=== PATIENT | female | born 1975 ===

== ENCOUNTER 2016-09-20 23:07 | Emergency (ER) | payer MEDICAID ==
[2016-09-20 23:07] VITALS: BMI 23.8
[2016-09-20 23:25] VITALS: BP 132/85; PULSE 84; RESP 16; TEMP 98.5; O2SAT 98
--- NOTE | 2016-09-21 00:34 | C.PDOC ---
History Of Present Illness 41 year old patient presents to the ED complaining of atraumatic left hand pain for the past 2 days. Patient reports the pain has a "pinching" sensation from the wrist to the left thumb. The pain is worse on movement. Patient denies any numbness or weakness. Time Seen by Provider: 09/20/16 23:36 Chief Complaint (Nursing): Finger,Hand,&Wrist History Per: Patient History/Exam Limitations: no limitations Onset/Duration Of Symptoms: Days (2) Current Symptoms Are (Timing): Still Present Quality: "Pain", Other ("pinching") Severity: Mild Pain Scale Rating Of: 3 Exacerbating Factor(s): Movement Recent travel outside of the [place]: No Past Medical History Reviewed: Historical Data, Nursing Documentation, Vital Signs Vital Signs: Last Vital Signs Temp 98.5 F 09/20/16 23:20 Pulse 84 09/20/16 23:20 Resp 16 09/20/16 23:20 BP 132/85 09/20/16 23:20 Pulse Ox 98 09/21/16 04:08 - [facility] Procedures TETANUS TOXOID ADMINIST (06/14/14) Family History: States: Unknown Family Hx - Social History Hx Tobacco Use: No Hx Alcohol Use: No Hx Substance Use: No - Immunization History Hx Tetanus Toxoid Vaccination: Yes Hx Influenza Vaccination: Yes Hx Pneumococcal Vaccination: Yes Review Of Systems Except As Marked, All Systems Reviewed And Found Negative. Musculoskeletal: Positive for: Other (left wrist pain) Neurological: Negative for: Weakness, Numbness Physical Exam - Physical Exam Appears: Non-toxic, No Acute Distress Skin: Warm, Dry Extremity: Capillary Refill (<2 seconds), No Deformity, No Swelling, Other ( left wrist: (-)swelling (-)erythema (-)deformity (+)ROM causes pain (+)good radial pulse (+)<2 seconds capillary refill ) Neurological/Psych: Oriented x3, Normal Motor, Normal Sensation Gait: Steady ED Course And Treatment O2 Sat by Pulse Oximetry: 98 (RA) Pulse Ox Interpretation: Normal Progress Note: Motrin was given. Volar splint was applied for support. Patient is instructed to follow up with PMD in 1-2 days or return if symptoms worsen. Disposition Counseled Patient/Family Regarding: Diagnosis, Need For Followup, Rx Given - Disposition Referrals: [facility] [Outside] Disposition: HOME/ ROUTINE Disposition Time: 00:34 Condition: GOOD Additional Instructions: Please follow up with PMD Take meds as directed Keep splint for support Return to ER if worse Prescriptions: Ibuprofen [Motrin] 600 mg PO Q6H #30 tab Print Language: AMHARIC - Clinical Impression Clinical Impression: Tendinitis, Hand pain - PA / MASTER PILOT / Resident Statement MD/DO has reviewed & agrees with the documentation as recorded. - Scribe Statement The provider has reviewed the documentation as recorded by the Scribe Mary Fontanez All medical record entries made by the Scribe were at my direction and personally dictated by me. I have reviewed the chart and agree that the record accurately reflects my personal performance of the history, physical exam, medical decision making, and the department course for this patient. I have also personally directed, reviewed, and agree with the discharge instructions and disposition.
== END 2016-09-21 00:44 | disposition home or self-care (01) ==
LOC: C.ER 23:07
DX: M77.9 Enthesopathy, unspecified (principal); M79.642 Pain in left hand

== ENCOUNTER 2017-01-07 03:49 | Emergency (ER) | payer MEDICAID ==
[2017-01-07 04:03] VITALS: BMI 23.3
--- NOTE | 2017-01-07 04:11 | C.PDOC ---
Time Seen by Provider: 01/07/17 04:11 Chief Complaint (Nursing): Dizziness/Lightheaded Past Medical History - [facility] Procedures TETANUS TOXOID ADMINIST (06/14/14) Family History: States: Unknown Family Hx - Social History Hx Tobacco Use: No Hx Alcohol Use: No Hx Substance Use: No - Immunization History Hx Tetanus Toxoid Vaccination: Yes Hx Influenza Vaccination: Yes Hx Pneumococcal Vaccination: Yes Disposition Counseled Patient/Family Regarding: Studies Performed, Diagnosis - Disposition Disposition Time: 04:11 Forms: [employer] (Iranian)
[2017-01-07 04:14] VITALS: RESP 18; O2SAT 99
--- NOTE | 2017-01-07 04:19 | C.PDOC ---
History Of Present Illness pt with dizziness with movement and some tinnitus worsening over the last w days. No trauma, no f/c/ some nausea. When she moves from sitting to lying down Time Seen by Provider: 01/07/17 04:11 Chief Complaint (Nursing): Dizziness/Lightheaded History Per: Patient History/Exam Limitations: no limitations Onset/Duration Of Symptoms: Days Current Symptoms Are (Timing): Still Present Severity: Mild Pain Scale Rating Of: 2 Quality: dizzy and mild tinnitus Recent travel outside of the [facility]: No Additional History Per: Family Past Medical History Reviewed: Historical Data, Nursing Documentation, Vital Signs Vital Signs: Last Vital Signs Temp 97.7 F 01/07/17 04:13 Pulse 80 01/07/17 04:13 Resp 18 01/07/17 04:13 BP 121/81 01/07/17 04:13 Pulse Ox 99 01/07/17 04:21 - [facility] Procedures TETANUS TOXOID ADMINIST (06/14/14) Family History: States: No Known Family Hx - Social History Hx Tobacco Use: No Hx Alcohol Use: No Hx Substance Use: No - Immunization History Hx Tetanus Toxoid Vaccination: Yes Hx Influenza Vaccination: Yes Hx Pneumococcal Vaccination: Yes Review Of Systems Constitutional: Negative for: Fever, Chills Eyes: Negative for: Vision Change, Redness ENT: Negative for: Ear Pain Cardiovascular: Negative for: Chest Pain Respiratory: Negative for: Shortness of Breath Gastrointestinal: Positive for: Nausea. Negative for: Vomiting, Abdominal Pain Genitourinary: Negative for: Dysuria Musculoskeletal: Negative for: Back Pain Neurological: Positive for: Headache, Dizziness Psych: Negative for: Anxiety Physical Exam - Physical Exam Appears: Non-toxic, No Acute Distress Skin: Warm, Dry Head: Atraumatic, Normacephalic Eye(s): bilateral: Normal Inspection, PERRL, EOMI Ear(s): Bilateral: Normal Oral Mucosa: Moist Neck: Trachea Midline, Supple Chest: Symmetrical Cardiovascular: Rhythm Regular Respiratory: No Rales, No Rhonchi, No Wheezing Gastrointestinal/Abdominal: Soft, No Tenderness, No Distention Back: No CVA Tenderness Extremity: Normal ROM Extremity: Bilateral: Atraumatic, Normal Color And Temperature Neurological/Psych: Oriented x3, Normal Speech, Normal Cognition, Other (neg nystagmus) Gait: Steady ED Course And Treatment - Laboratory Results Result Diagrams: 01/07/17 04:32 07/28/17 04:32 O2 Sat by Pulse Oximetry: 99 Pulse Ox Interpretation: Normal Reevaluation Time: 05:57 Reassessment Condition: Improved Disposition Counseled Patient/Family Regarding: Studies Performed, Diagnosis, Need For Followup, Rx Given - Disposition Referrals: Mellissa Ellington MD [Staff Provider] - Disposition: HOME/ ROUTINE Disposition Time: 05:58 Condition: FAIR Prescriptions: Meclizine [Antivert] 25 mg PO TID #21 tab Ondansetron ODT [Zofran ODT] 1 odt PO BID PRN #6 odt PRN Reason: Nausea/Vomiting Instructions: Tinnitus (ED), Dizziness (ED), Labyrinthitis (GEN) Forms: [facility] [facility] (Polish) - Clinical Impression Clinical Impression: Dizziness, Labyrinthitis, Tinnitus
[2017-01-07] MEDS ORDERED: Sodium Chloride 0.9% 1,000 ML IV ONE (04:21)
[2017-01-07] MEDS ORDERED: Sodium Chloride 0.9% 1,000 ML ONE (04:27)
[2017-01-07 04:39] LABS: BASO % 0.5 % (0.0-2.0); EOS # 0.3 K/uL (0.0-0.7); EOS % 3.9 % (0.0-4.0); HEMATOCRIT 41.5 % (34.0-47.0); LYMPH # 2.4 K/uL (1.0-4.3); LYMPH % 35.1 % (20.0-40.0); MEAN CELL VOLUME 87.1 fL (81.0-99.0); MEAN CORPUSCULAR HEMOGLOBIN 29.2 pg (27.0-31.0); MEAN CORPUSCULAR HGB CONC 33.6 g/dL (33.0-37.0); MEAN PLATELET VOLUME 8.7 fL (7.2-11.7); MONO # 0.3 K/uL (0.0-0.8); MONO % 3.9 % (0.0-10.0); RED CELL DISTRIBUTION WIDTH 14.3 % (11.5-14.5); WHITE BLOOD COUNT 6.9 K/uL (4.8-10.8)
[2017-01-07 04:39] LABS: RBC URINE < 1 /hpf (0-3); URINE BACTERIA RARE (<OCC); URINE BILIRUBIN NEGATIVE (NEGATIVE); URINE BLOOD NEGATIVE (NEGATIVE); URINE COLOR Colorless (YELLOW); URINE GLUCOSE (UA) NORMAL (Normal); URINE KETONE NEGATIVE (NEGATIVE); URINE LEUKOCYTE ESTERASE NEG Leu/uL (Negative); URINE PROTEIN NEGATIVE (NEGATIVE); URINE UROBILINOGEN NORMAL mg/dL (0.2-1.0); WBC URINE < 1 /hpf (0-5)
[2017-01-07 04:40] LABS: CHLORIDE 102 mmol/L (98-107)
[2017-01-07 04:41] LABS: POTASSIUM 4.1 mmol/L (3.6-5.2); SODIUM 137 mmol/L (132-148)
[2017-01-07 04:43] LABS: AST/SGOT 20 U/L (14-36); BILIRUBIN,TOTAL 0.9 mg/dL (0.2-1.3); CARBON DIOXIDE 23 mmol/L (22-30); GFR AFRICAN-AMERICAN > 60
[2017-01-07 04:44] LABS: ALB/GLOB RATIO 1.2 (1.0-2.1); ALKALINE PHOSPHATASE 51 U/L (38-126); ALT/SGPT 26 U/L (9-52); BLOOD UREA NITROGEN 13 mg/dL (7-17); CALCIUM 9.1 mg/dl (8.6-10.4); GLUCOSE,RANDOM 99 mg/dL (65-105); TOTAL PROTEIN 7.1 g/dL (6.3-8.3)
--- NOTE | 2017-01-07 05:04 | CT ---
EXAM: CT Head Without Intravenous Contrast CLINICAL HISTORY: 41 years old, female; Pain; Headache and other: Dizzeness; Patient HX: 05-07-15. Faxed report already; Additional info: Headache, dizziness TECHNIQUE: Axial computed tomography images of the head/brain without intravenous contrast. This CT exam was performed using one or more of the following dose reduction techniques: automated exposure control, adjustment of the mA and/or kV according to patient size, and/or use of iterative reconstruction technique. COMPARISON: CT - HEAD W/O CONTRAST 05/07/2015 3:29:48 PM FINDINGS: Brain: Unremarkable. No significant white matter disease. No edema. No intracranial mass, mass effect, or midline shift. Ventricles: Unremarkable. No ventriculomegaly. Bones/joints: Unremarkable. No acute fracture. Soft tissues: Unremarkable. Sinuses: Unremarkable as visualized. No acute sinusitis. Mastoid air cells: Unremarkable as visualized. No mastoid effusion. IMPRESSION: No acute intracranial abnormality.
[2017-01-07 06:11] VITALS: BP 103/70; PULSE 74; TEMP 97.5
== END 2017-01-07 06:16 | disposition home or self-care (01) ==
LOC: C.ER 03:49
DX: H83.09 Labyrinthitis, unspecified ear (principal); R42 Dizziness and giddiness; H93.19 Tinnitus, unspecified ear
CPT/HCPCS: 70450; 80053; 81001; 84703; 85025; 96361; 96374; 99285; J2405; J7040

== ENCOUNTER 2017-12-15 08:59 | Emergency (ER) | payer MEDICAID ==
[2017-12-15 09:00] VITALS: BMI 23.3
[2017-12-15 09:11] VITALS: BP 134/90; PULSE 95; RESP 16; TEMP 99; O2SAT 99
[2017-12-15] MEDS ORDERED: Amoxicillin-Clav 875-125 mg Tab PO STA (09:12)
[2017-12-15] MEDS ORDERED: Lidocaine 1% Inj (20ml) INFIL STA (09:12)
[2017-12-15] MEDS ORDERED: Bacitracin 500 Units/gm Oint Foilpak UD TOP ONE (09:13)
[2017-12-15] MEDS ORDERED: Amoxicillin-Clav 875-125 mg Tab PO ONE (09:22)
[2017-12-15] MEDS ORDERED: Bacitracin 500 Units/gm Oint Foilpak UD ONE (09:46)
--- NOTE | 2017-12-15 09:47 | C.PDOC ---
History Of Present Illness 42 yo female comes to ER for evaluation after she was bit by a neighbor's dog prior to arrival. Patient states she was walking on the street when the neighbor 's dog jumped up and bit her left upper forearm. She reports the dog is well known to her, is healthy and up to date with vaccinations, including rabies. Patient is also with tetanus vaccination (given 2 years ago). Otherwise, patient denies any other injuries. Time Seen by Provider: 12/15/17 09:02 Chief Complaint (Nursing): Bite History Per: Patient History/Exam Limitations: no limitations Onset/Duration Of Symptoms: Mins Current Symptoms Are (Timing): Still Present Location Of Injury: Left: Arm (upper) Quality Of Symptoms: Painful Severity: Mild Additional History Per: Patient - Animal Bite Description Of The Attack: Unprovoked Attack Description Of The Animal: Neighbor's Pet Reports Animal Appears: Well Reports Animal's Immunization Status: UTD Past Medical History Reviewed: Historical Data, Nursing Documentation, Vital Signs Vital Signs: Last Vital Signs Temp 99 F 12/15/17 09:09 Pulse 95 H 12/15/17 09:09 Resp 16 12/15/17 09:09 BP 134/90 12/15/17 09:09 Pulse Ox 99 12/15/17 11:31 - Medical History PMH: No Chronic Diseases Surgical History: No Surg Hx - [facility] Procedures TETANUS TOXOID ADMINIST (06/14/14) Family History: States: No Known Family Hx - Social History Hx Tobacco Use: No Hx Alcohol Use: No Hx Substance Use: No - Immunization History Hx Tetanus Toxoid Vaccination: Yes Hx Influenza Vaccination: Yes Hx Pneumococcal Vaccination: Yes Review Of Systems Constitutional: Negative for: Fever Cardiovascular: Negative for: Chest Pain Respiratory: Negative for: Shortness of Breath Gastrointestinal: Negative for: Nausea, Vomiting Skin: Positive for: Other (dog bite left upper arm) Physical Exam - Physical Exam Appears: Well, Non-toxic, Other (mild discomfort, anxious appearing) Skin: Warm, Dry, Other (left posterior upper arm with bite wounds and mild surrouding ecchymosis. Largest wound is approx 2cm in length and there is a 0.5cm wound immediately lateral to larger wound. Minimal bleeding but no discharge) Oral Mucosa: Moist Neck: Supple Cardiovascular: Rhythm Regular Respiratory: Normal Breath Sounds, No Rales, No Rhonchi, No Wheezing Extremity: Normal ROM (FROM left shoulder, elbow, wrist and fingers), No Tenderness, Capillary Refill (< 2 seconds all digits ), No Deformity, No Swelling Extremity: Bilateral: Normal ROM Pulses: Left Radial: Normal, Right Radial: Normal Neurological/Psych: Oriented x3, Normal Sensation ED Course And Treatment O2 Sat by Pulse Oximetry: 99 (RA) Pulse Ox Interpretation: Normal Progress Note: Wound cleaned with normal saline by nurse. Loosely repaired by me, patient tolerated well. Bacitracin + gauze dressing applied by nurse. Patient given PO Tylenol and Augmentin in ED, as well as Rxs for same. Patient instructed to return to ED in 2 days for wound check. She understands she should return to ED sooner if she has any concerning symptoms. Reevaluation Time: 09:50 Reassessment Condition: Improved Laceration - Laceration Repair LEFT UPPER ARM DOG BITE Wound Length (In cm): 2 Description Of Wound: Irregular (ARROW SHAPED) Wound Cleansed With: Sterile Saline Anesthesia: Lidocaine 1% (approx 3ml local infiltration) Wound Examination: Irrigated With Saline, No FB With Wound Exploration, No Tendon Injury With Wound Exploration Wound Closure: Suture (1 loose suture in center of wound - ethilon 3.0 ) Suture Technique And Material Used: Interrupted Wound Complexity: Simple Disposition Counseled Patient/Family Regarding: Diagnosis, Need For Followup, Rx Given - Disposition Referrals: Yordy Dee, TYLER, BLEACH PACKER [Advanced Practice Nurse] - Disposition: HOME/ ROUTINE Disposition Time: 09:50 Condition: STABLE Additional Instructions: KEEP AREA COVERED AND DRY RETURN TO EMERGENCY ROOM IN 2 DAYS FOR WOUND CHECK USE ANTIBIOTIC UNTIL FINISHED RETURN TO EMERGENCY ROOM IF YOU HAVE CONCERNING SYMPTOMS SUCH REDNESS, BLEEDING, DISCHARGE, FEVER, ETC Prescriptions: Acetaminophen [Tylenol 325mg tab] 650 mg PO Q6 PRN #30 tab PRN Reason: pain/fever Amoxicillin/Clavulanate [Augmentin 875 MG-125 MG] 1 tab PO BID #14 tab Instructions: Animal Bites (DC) Forms: [facility] (Romansh) Print Language: HEBREW - Clinical Impression Clinical Impression: Dog bite of left upper arm - Scribe Statement The provider has reviewed the documentation as recorded by the Scribe (Diana Stein) Provider Attestation: All medical record entries made by the Scribe were at my direction and personally dictated by me. I have reviewed the chart and agree that the record accurately reflects my personal performance of the history, physical exam, medical decision making, and the department course for this patient. I have also personally directed, reviewed, and agree with the discharge instructions and disposition.
== END 2017-12-15 09:56 | disposition home or self-care (01) ==
LOC: C.ER 08:59
DX: S41.152A Open bite of left upper arm, initial encounter (principal); W54.0XXA Bitten by dog, initial encounter; Y92.410 Unspecified street and highway as the place of occurrence of the external cause

== ENCOUNTER 2017-12-17 11:57 | Emergency (ER) | payer MEDICAID ==
[2017-12-17 12:12] VITALS: BMI 23.8
[2017-12-17 12:14] VITALS: BP 116/79; PULSE 92; TEMP 99.1; O2SAT 98
[2017-12-17] MEDS ORDERED: Bacitracin 500 Units/gm Oint Foilpak UD TOP ONE (12:32)
[2017-12-17] MEDS ORDERED: Bacitracin 500 Units/gm Oint Foilpak UD ONE (12:33)
--- NOTE | 2017-12-17 12:48 | C.PDOC ---
History Of Present Illness 42 year old female presents to the ER for a dog bite wound check. Denies fever or chills. Time Seen by Provider: 12/17/17 12:15 Chief Complaint (Nursing): Bite History Per: Patient History/Exam Limitations: no limitations Onset/Duration Of Symptoms: Days Ago Current Symptoms Are (Timing): Still Present Location Of Injury: Left: Arm Quality Of Symptoms: Other (Bite) Recent travel outside of the [place]: No Past Medical History Reviewed: Historical Data, Nursing Documentation, Vital Signs Vital Signs: Last Vital Signs Temp 99.1 F 12/17/17 12:12 Pulse 92 H 12/17/17 12:12 Resp 16 12/17/17 12:57 BP 116/79 12/17/17 12:12 Pulse Ox 98 12/17/17 13:08 - Medical History PMH: No Chronic Diseases Surgical History: No Surg Hx - [facility] Procedures TETANUS TOXOID ADMINIST (06/14/14) Family History: States: Unknown Family Hx - Social History Hx Tobacco Use: No Hx Alcohol Use: No Hx Substance Use: No - Immunization History Hx Tetanus Toxoid Vaccination: Yes Hx Influenza Vaccination: Yes Hx Pneumococcal Vaccination: Yes Review Of Systems Constitutional: Negative for: Fever, Chills Skin: Positive for: Other (Healing wound) Neurological: Negative for: Weakness, Numbness Physical Exam - Physical Exam Appears: Non-toxic, No Acute Distress Skin: Warm, Dry Head: Atraumatic, Normacephalic Eye(s): bilateral: Normal Inspection Oral Mucosa: Moist Neck: Normal ROM, Supple Extremity: Normal ROM (x4), Capillary Refill (<2 seconds), Other (5 puncture wounds and sutured laceration to left lateral upper arm with mild erythema, and mild swelling. No drainage or streaking. Normal compartments) Pulses: Left Radial: Normal, Right Radial: Normal Neurological/Psych: Oriented x3, Normal Speech, Normal Motor, Normal Sensation Gait: Steady ED Course And Treatment O2 Sat by Pulse Oximetry: 98 (Room air) Pulse Ox Interpretation: Normal Medical Decision Making Medical Decision Making: Prior records reviewed, patient was seen 2 days ago for similar complaint. Wound was cleansed and dressed, patient advised to continue antibiotics and follow up in two days for another wound check. Disposition - Disposition Referrals: Ag Dee DO [[facility]] - Disposition: HOME/ ROUTINE Disposition Time: 12:48 Condition: FAIR Additional Instructions: Clean twice a day with soap and water. Then apply bacitracin. Follow up with your PMD for wound check or here in 2 days. Return to the ED as soon as possible if worsened. Prescriptions: Bacitracin Ointment [Bacitracin] 30 gm TOP BID #1 tube Instructions: Wound Care (DC) Forms: [employer] (American) - Clinical Impression Clinical Impression: Visit for wound check - PA / HAND CLIPPER / Resident Statement MD/DO has reviewed & agrees with the documentation as recorded. - Scribe Statement The provider has reviewed the documentation as recorded by the Scribe Mason Eastman All medical record entries made by the Yanibkatlin were at my direction and personally dictated by me. I have reviewed the chart and agree that the record accurately reflects my personal performance of the history, physical exam, medical decision making, and the department course for this patient. I have also personally directed, reviewed, and agree with the discharge instructions and disposition.
[2017-12-17 12:57] VITALS: RESP 16
== END 2017-12-17 12:57 | disposition home or self-care (01) ==
LOC: C.ER 11:57
DX: Z51.89 Encounter for other specified aftercare (principal)

== ENCOUNTER 2018-08-10 16:28 | Emergency (ER) | payer MEDICAID ==
[2018-08-10 16:28] VITALS: BMI 23.8
--- NOTE | 2018-08-10 17:37 | C.PDOC ---
History Of Present Illness 43 year old female presents to ED with complaint of digitally reproducible chest pain for the past 2 days. Patient states she has had a viral syndrome for the past week and has taken over the counter cough and cold remedies. Patient states that her cold symptoms have resolved. Patient is still coughing extensively. She denies fever, chills, and SOB. Time Seen by Provider: 08/10/18 17:27 Chief Complaint (Nursing): Chest Pain History Per: Patient History/Exam Limitations: no limitations Onset/Duration Of Symptoms: Days (2) Current Symptoms Are (Timing): Still Present Quality: "Pain" Associated Symptoms: denies: Nausea, Dyspnea Past Medical History Reviewed: Historical Data, Nursing Documentation, Vital Signs Vital Signs: Last Vital Signs Temp 98.7 F 08/10/18 16:40 Pulse 109 H 08/10/18 16:40 Resp 20 08/10/18 16:40 BP 118/85 08/10/18 16:40 Pulse Ox 96 08/10/18 16:40 - Medical History PMH: No Chronic Diseases Surgical History: No Surg Hx - [facility] Procedures TETANUS TOXOID ADMINIST (06/14/14) Family History: States: Unknown Family Hx - Social History Hx Tobacco Use: No Hx Alcohol Use: No Hx Substance Use: No - Immunization History Hx Tetanus Toxoid Vaccination: Yes Hx Influenza Vaccination: Yes Hx Pneumococcal Vaccination: Yes Review Of Systems Constitutional: Negative for: Fever, Chills, Weakness ENT: Negative for: Nose Discharge, Nose Congestion, Throat Pain Cardiovascular: Positive for: Chest Pain. Negative for: Palpitations Respiratory: Positive for: Cough. Negative for: Shortness of Breath Gastrointestinal: Negative for: Nausea, Vomiting Neurological: Negative for: Weakness, Numbness, Dizziness Physical Exam - Physical Exam Appears: Non-toxic, Other (anxious appearing) Skin: Normal Color, Warm, Dry Head: Atraumatic, Normacephalic Neck: Normal ROM, Supple Chest: Tenderness (bilateral parasternal area, T2; intercostal bilateral posterior thoracic area, T5-T8) Cardiovascular: Rhythm Regular, No Murmur Respiratory: No Accessory Muscle Use Gastrointestinal/Abdominal: Soft, No Tenderness Neurological/Psych: Oriented x3, Normal Speech, Normal Cognition ED Course And Treatment ECG: Interpreted By Me ECG Rhythm: Sinus Rhythm ECG Interpretation: Normal Rate From EC O2 Sat by Pulse Oximetry: 96 (RA) Pulse Ox Interpretation: Normal Progress Note: Patient given Motrin PO. Upon reassessment, patient is no distress, resting comfortably, and is stable for discharge. Discussed results and plan with patient who expresses understanding. All questions answered and there is agreement with the plan to discharge home with instructions. Patient stable for discharge. Return if symptoms persist or worsen. Medical Decision Making Medical Decision Making: viral syndrome, resolving costochondritis b/l parasternal T2 area, and b/l thoracic posterior chest wall. clear lungs Disposition Doctor Will See Patient In The: Office Counseled Patient/Family Regarding: Studies Performed, Diagnosis - Disposition Referrals: [facility] [Outside] [facility] [Outside] [facility] [Outside] Yordy Dee, TYLER, SURG NURSE [Advanced Practice Nurse] - Disposition: HOME/ ROUTINE Disposition Time: 17:36 Condition: GOOD Additional Instructions: bolsa de hielo 1/2 hora por hora, nada caliente Ibuprofeno/Advil 400-600 mg cada 6 horas charo necessario para dolor del pared del pecho electrocardiograma NEGATIVO Instructions: Costochondritis Forms: [employer] (Senegalese) Print Language: KYRGYZ - Clinical Impression Clinical Impression: Chest wall discomfort - Scribe Statement The provider has reviewed the documentation as recorded by the Scribe (Charis San) All medical record entries made by the Scribe were at my direction and personally dictated by me. I have reviewed the chart and agree that the record accurately reflects my personal performance of the history, physical exam, medical decision making, and the department course for this patient. I have also personally directed, reviewed, and agree with the discharge instructions and disposition.
[2018-08-10 17:50] VITALS: BP 142/86; PULSE 98; RESP 16; TEMP 98
[2018-08-10 18:31] VITALS: O2SAT 96
--- NOTE | 2018-08-14 22:28 | CARD ---
APPROVED REPORT Date of service: 08/10/2018 EKG Measurement Heart [id number] <Conclusion> Normal sinus rhythm Normal ECG
== END 2018-08-10 17:55 | disposition home or self-care (01) ==
LOC: C.ER 16:28
DX: R07.89 Other chest pain (principal)